=== PATIENT | male | born 1975 | race Hispanic/Latino ===

== ENCOUNTER 2016-06-05 21:23 | Emergency (ER) | payer OTHER ==
[~2016-06-05] VITALS: Ht 172.7 cm; Wt 86.4 kg
[2016-06-05 21:26] VITALS: BP 135/95; PULSE 76; RESP 16; O2SAT 98
== END 2016-06-05 23:09 | disposition left against medical advice (07) ==
LOC: SED 21:23
DX: Z53.21 Procedure and treatment not carried out due to patient leaving prior to being seen by health care provider (principal)